=== PATIENT | female | born 1995 | race Two or more races ===

== ENCOUNTER 2024-11-28 03:20 | Emergency (ER) | payer MEDICAID ==
[~2024-11-28] VITALS: Ht 165.1 cm; Wt 59.9 kg
[2024-11-28] MEDS ORDERED: IBUPROFEN 600 MG TABLET ONE (03:48)
[2024-11-28] MEDS: IBUPROFEN 600 MG TABLET PO ONE (03:54)
[2024-11-28] MEDS ORDERED: TDAP [DIPH/PERTUSSIS/TET] 0.5 ML VIAL IM ONE (03:54)
[2024-11-28] MEDS: TDAP [DIPH/PERTUSSIS/TET] 0.5 ML VIAL IM ONE (03:59)
[2024-11-28] MEDS ORDERED: IBUP-1490 PO (04:24)
[2024-11-28] MEDS ORDERED: CEPH-570 PO (04:24)
[2024-11-28 04:43] VITALS: BP 155/87; TEMP 98; O2SAT 100
== END 2024-11-28 04:43 | disposition home or self-care (01) ==
LOC: ER 03:29
DX: S91.114A Laceration without foreign body of right lesser toe(s) without damage to nail, initial encounter (principal); S90.414A Abrasion, right lesser toe(s), initial encounter; W20.8XXA Other cause of strike by thrown, projected or falling object, initial encounter; Y93.89 Activity, other specified; Y92.89 Other specified places as the place of occurrence of the external cause; Y99.8 Other external cause status
CPT/HCPCS: 73630-TC; 90715